=== PATIENT | female | born 1985 | race Caucasian/White ===

== ENCOUNTER 2016-10-16 17:22 | Emergency (ER) | payer BC ==
[2016-10-16 18:43] VITALS: BP 115/57
--- NOTE | 2016-10-16 19:34 | UC ---
Ear Complaint HPI - HPI Summary HPI Summary: 35 WEEKS , HAS HAD 3WEEKS OF BILATERAL EAR DISCOMFORT WELL COUGH AND CONGESTION. NO FEVER, BUT EAR PAIN AND CONGESTION ARE GETTING WORSE - History of Current Complaint Chief Complaint: UCRespiratory Stated Complaint: CONGESTION/COUGH/EARS Time Seen by Provider: 10/16/16 19:12 Hx Obtained From: Patient Hx Last Menstrual Period: 01/18/16 Onset/Duration: Gradual Onset, Lasting Days, Still Present Severity Initially: Mild Severity Currently: Moderate Associated Signs/Symptoms: Positive: URI Symptoms - Allergies/Home Medications Allergies/Adverse Reactions: Allergies Allergy/AdvReac Type Severity Reaction Status Date / Time Amoxicillin Allergy Unknown Verified 10/16/16 18:44 Reaction Details Bee Venom Allergy Unknown Verified 10/16/16 18:44 Reaction Details Penicillins Allergy Unknown Verified 10/16/16 18:44 Reaction Details Zonisamide Allergy Hives Verified 10/16/16 18:44 antihistamines Allergy See Comment Uncoded 10/16/16 18:44 Home Medications: Home Medications Dextromethorphan-Guaifenesin [Robitussin Cough+Chest Co 10-200 mg] 2 cap PO ONCE PRN 10/16/16 [History Confirmed 10/16/16] PMH/Surg Hx/FS Hx/Imm Hx Previously Healthy: Yes - Surgical History Surgical History: None - Family History Known Family History: Positive: Hypertension, Diabetes - Social History Occupation: Employed Full-time Lives: With Family Alcohol Use: Rare Substance Use Type: None Smoking Status (MU): Never Smoked Tobacco Have You Smoked in the Last Year: No Review of Systems Constitutional: Negative Skin: Negative Eyes: Negative ENT: Ear Ache, Nasal Discharge Respiratory: Cough Cardiovascular: Negative Gastrointestinal: Negative Genitourinary: Negative Motor: Negative Neurovascular: Negative Musculoskeletal: Negative Neurological: Negative Psychological: Negative All Other Systems Reviewed And Are Negative: Yes Physical Exam Triage Information Reviewed: Yes Appearance: Well-Appearing, No Pain Distress, Well-Nourished, Other: - 35 WKS Vital Signs: Initial Vital Signs Temp 97.8 F 10/16/16 18:37 Pulse 90 10/16/16 18:37 Resp 16 10/16/16 18:37 BP 115/57 10/16/16 18:37 Pulse Ox 100 10/16/16 18:37 Eye Exam: Normal Eyes: Positive: Conjunctiva Clear ENT: Positive: Hearing grossly normal, Pharynx normal, TM dull, TM red Dental Exam: Normal Neck exam: Normal Neck: Positive: Supple, Nontender, No Lymphadenopathy Respiratory Exam: Normal Respiratory: Positive: Chest non-tender, Lungs clear, Normal breath sounds, No respiratory distress, No accessory muscle use Cardiovascular Exam: Normal Cardiovascular: Positive: RRR, No Murmur, Pulses Normal Abdominal Exam: Normal Abdomen Description: Positive: Nontender, No Organomegaly Musculoskeletal Exam: Normal Musculoskeletal: Positive: Strength Intact Neurological Exam: Normal Psychological Exam: Normal Psychological: Positive: Normal Response To Family Skin Exam: Normal Ear Complaint Course/Dx - Differential Dx/Diagnosis Differential Diagnosis/HQI/PQRI: Otitis Media Provider Diagnoses: LEFT OTITIS MEDIA. UPPER RESPIRATORY INFECTION. 35 WEEKS Discharge - Discharge Plan Condition: Stable Disposition: HOME Prescriptions: Azithromycin TAB* [Zithromax TAB (Z-ELLIOT) 250 mg #6 tabs] 250 mg PO DAILY #6 tab Patient Education Materials: Otitis Media (ED), Upper Respiratory Infection (ED ) Referrals: Shania Aguero NP [Primary Care Provider] -
== END 2016-10-16 19:31 | disposition home or self-care (01) ==
LOC: UCCORT 17:22
DX: O99.89 Other specified diseases and conditions complicating pregnancy, childbirth and the puerperium (principal); H66.92 Otitis media, unspecified, left ear; J06.9 Acute upper respiratory infection, unspecified; Z3A.35 35 weeks gestation of pregnancy
CPT/HCPCS: 99212; G0463

== ENCOUNTER 2018-02-14 17:14 | Emergency (ER) | payer BC ==
--- NOTE | 2018-02-14 17:46 | UC ---
Throat Pain/Nasal Keyur HPI - HPI Summary HPI Summary: Pt with 8 days progressive sinus congestion, pnd, sore throat and 3 days ear pain Pt initially thought was allergies, but sx worse. tactile temp. Taking flonase, decongestant without improvment. No sob, cough, cp. + sick contact Pt's medications reviewed this visit - History of Current Complaint Stated Complaint: SINUS/EAR Time Seen by Provider: 02/14/18 17:42 Hx Obtained From: Patient Hx Last Menstrual Period: 01/18/16 ?: No Onset/Duration: Gradual Onset Severity: Mild Pain Intensity: 4 Associated Signs & Symptoms: Positive: Sinus Discomfort, Nasal Discharge, Fever - tactile Related History: Seasonal Allergies - Allergies/Home Medications Allergies/Adverse Reactions: Allergies Allergy/AdvReac Type Severity Reaction Status Date / Time amoxicillin Allergy Rash Verified 02/14/18 17:43 bee venom protein (honey bee) Allergy Unknown Verified 02/14/18 17:43 Reaction Details Penicillins Allergy Rash Verified 02/14/18 17:43 zonisamide Allergy Hives Verified 02/14/18 17:43 "Some ANTIHISTAMINES" Allergy "Pinching Uncoded 02/14/18 17:43 feeling in my heart" Home Medications: Home Medications Fluticasone NASAL SPRAY 50MCG* [Flonase NASAL SPRAY 50MCG*] 2 spray BOTH NARES DAILY PRN 02/14/18 [History Confirmed 02/14/18] Ibuprofen TAB* [Advil TAB*] 800 mg PO Q8HR PRN 02/14/18 [History Confirmed 02/14] LevoCETirizine TAB (NF) [Xyzal TAB (NF)] 5 mg PO DAILY PRN 02/14/18 [History Confirmed 02/14/18] PMH/Surg Hx/FS Hx/Imm Hx Previously Healthy: Yes - Surgical History Surgical History: None - Family History Known Family History: Positive: Hypertension, Diabetes - Social History Occupation: Employed Full-time Lives: With Family Alcohol Use: Rare Substance Use Type: None Smoking Status (MU): Never Smoked Tobacco Have You Smoked in the Last Year: No Review of Systems Constitutional: Negative ENT: Ear Ache, Nasal Discharge, Sinus Congestion All Other Systems Reviewed And Are Negative: Yes Physical Exam Triage Information Reviewed: Yes Appearance: Well-Appearing, No Pain Distress, Well-Nourished Vital Signs Reviewed: Yes Eye Exam: Normal Eyes: Positive: Conjunctiva Clear ENT Exam: Normal ENT: Positive: Hearing grossly normal, Pharynx normal, Nasal congestion, Other - fluid, erythema right TM + retracted turbinates inflammed right MAx sinus pain + PND no exudate, no erythema Dental Exam: Normal Neck exam: Normal Neck: Positive: Supple, Nontender, No Lymphadenopathy Respiratory Exam: Normal Respiratory: Positive: Chest non-tender, Lungs clear, Normal breath sounds, No respiratory distress, No accessory muscle use Cardiovascular Exam: Normal Cardiovascular: Positive: RRR, No Murmur Abdominal Exam: Normal Abdomen Description: Positive: Nontender Bowel Sounds: Positive: Present Musculoskeletal Exam: Normal Musculoskeletal: Positive: Strength Intact Neurological Exam: Normal Neurological: Positive: Alert Psychological Exam: Normal Skin Exam: Normal Throat Pain/Nasal Course/Dx - Course Course Of Treatment: Pt with sinus congestion, right ear pain. progressive x 8 days. little improved with OTC meds. pt with right OM on exam. abx. decongestant. flonase. secretion precaution. return precautions. motrin/apap - Differential Dx/Diagnosis Provider Diagnoses: right OM. sinusitis Discharge - Sign-Out/Discharge Documenting (check all that apply): Discharge/Admit/Transfer - Discharge Plan Condition: Stable Disposition: HOME Prescriptions: Azithromycin 500 mg PO DAILY #7 tablet Patient Education Materials: Ear Infection (ED) Referrals: Shania Aguero ANDROID UI DEVELOPER [Primary Care Provider] - Additional Instructions: - Okay to alternate ibuprofen (Advil, Motrin) and Tylenol every 3 hours for pain. Take with food. Do NOT take for more than 4-5 days - Continue with allergy medicine and flonase as previously prescribed. It is recommended you consider taking a decongestant such as sudafed. Take this medication in the morning as it can cause people to feel extra energy and can prevent restful sleep - Take antibiotics as prescribed until gone. These infections are spread by secretions - do not share eating or drinking utensils until you symptoms are resolved. Clean items that may get your secretions such as cell phones, ipads, computer mouse, television remotes, steering wheel. Once you have been on antibiotics for 2 days, change your toothbrush and your pillowcase. - Contact your doctor to arrange a follow-up appointment as needed - Billing Disposition and Condition Condition: STABLE Disposition: HOME
[2018-02-14 17:47] VITALS: BP 131/74
== END 2018-02-14 18:10 | disposition home or self-care (01) ==
LOC: UCCORT 17:14
DX: H66.91 Otitis media, unspecified, right ear (principal); J32.9 Chronic sinusitis, unspecified; Z88.0 Allergy status to penicillin; Z88.8 Allergy status to other drugs, medicaments and biological substances; Z91.030 Bee allergy status
CPT/HCPCS: 99212; G0463

== ENCOUNTER 2018-03-30 07:25 | Emergency (ER) | payer BC ==
[2018-03-30 07:46] VITALS: BP 127/71
--- NOTE | 2018-03-30 08:21 | UC ---
Skin Complaint HPI - HPI Summary HPI Summary: 3 day history of tenderness and induration in the left jaw area--tried to express it without any result but never clearly saw a pustule. No fever, no sore throat, cough or headache. Trying to conceive with a hx of PCOS, about to stop fertility meds, but had a serum HCG of 5 on her labs with repeat planned for tomorrow. - History of Current Complaint Chief Complaint: UCSkin Time Seen by Provider: 03/30/18 08:12 Stated Complaint: SKIN COMPLAINT Hx Obtained From: Patient Hx Last Menstrual Period: End december Onset/Duration: Gradual Onset, Lasting Days - 3 Timing: Constant Onset Severity: Mild Current Severity: Mild Pain Intensity: 2 Location: Discrete, Face - left jaw area Character: Swelling, Raised, Painful Aggravating Factor(s): Touch Alleviating Factor(s): Heat Associated Signs & Symptoms: Positive: Negative - Allergy/Home Medications Allergies/Adverse Reactions: Allergies Allergy/AdvReac Type Severity Reaction Status Date / Time amoxicillin Allergy Rash Verified 03/30/18 07:46 bee venom protein (honey bee) Allergy Unknown Verified 03/30/18 07:46 Reaction Details Penicillins Allergy Rash Verified 03/30/18 07:46 zonisamide Allergy Hives Verified 03/30/18 07:46 "Some ANTIHISTAMINES" Allergy "Pinching Uncoded 03/30/18 07:46 feeling in my heart" Review of Systems Constitutional: Negative Skin: Negative Eyes: Negative ENT: Negative Respiratory: Negative Cardiovascular: Negative Gastrointestinal: Negative Genitourinary: Other - LMP December with hx of PCOS and irregular cycles. About to begin fertility treatment. Motor: Negative Neurovascular: Negative Musculoskeletal: Negative Neurological: Negative Psychological: Negative Is Patient Immunocompromised?: No All Other Systems Reviewed And Are Negative: Yes PMH/Surg Hx/FS Hx/Imm Hx - Additional Past Medical History Additional PMH: PCOS with infertility Previously Healthy: Yes - Surgical History Surgical History: None - Family History Known Family History: Positive: Hypertension, Diabetes - Social History Occupation: Employed Full-time - nurse Lives: With Family Alcohol Use: Rare Substance Use Type: None Smoking Status (MU): Never Smoked Tobacco Have You Smoked in the Last Year: No Physical Exam Triage Information Reviewed: Yes Appearance: Well-Appearing, Pain Distress - mild Vital Signs: Initial Vital Signs Temp 98.8 F 03/30/18 07:40 Pulse 91 07/04/18 07:40 Resp 22 03/30/18 07:40 BP 127/71 03/30/18 07:40 Pulse Ox 100 03/30/18 07:40 Vital Signs Reviewed: Yes Eye Exam: Normal ENT: Positive: Pharynx normal, TMs normal Dental Exam: Normal Neck: Positive: Supple, Nontender, No Lymphadenopathy Respiratory: Positive: Lungs clear, Normal breath sounds Cardiovascular: Positive: RRR, No Murmur Psychological Exam: Normal Skin Exam: Other - left jaw area, just inferior to the angle with a firm indurated erythematous area 4 x 3.5 cm. No adenopathy. Central crust with skin induration. NOT fluctuant. Course/Dx - Course Course Of Treatment: keflex for cellulitis with possible forming abscess. - Differential Diagnoses - Skin Complaint Differential Diagnoses: Cellulitis - Diagnoses Provider Diagnoses: cellulitis left face. Discharge - Sign-Out/Discharge Documenting (check all that apply): Discharge/Admit/Transfer - Discharge Plan Condition: Stable Disposition: HOME Prescriptions: Cephalexin CAP* [Keflex 500 CAP*] 500 mg PO QID #40 cap Patient Education Materials: Cellulitis (ED) Referrals: Shania Aguero, DISABILITY LIAISON OFFICER [Primary Care Provider] - Additional Instructions: begin cephalexin 500mg 4 times daily. This can be stopped at 7 days if the infection has resolved. An abscess might form, in which case you might need to have incision and drainage. If the area becomes boggy, return here or to your primary doctor for reassessment. Continue warm compresses for 5 to 10 minutes at least 3 times daily. - Billing Disposition and Condition Condition: STABLE Disposition: Home
== END 2018-03-30 08:47 | disposition home or self-care (01) ==
LOC: UCCORT 07:25
DX: Z88.0 Allergy status to penicillin (principal); Z88.2 Allergy status to sulfonamides; Z88.8 Allergy status to other drugs, medicaments and biological substances; L03.211 Cellulitis of face
CPT/HCPCS: 99212; G0463

== ENCOUNTER 2018-10-08 17:08 | Emergency (ER) | payer BC ==
[2018-10-08 17:34] VITALS: BP 138/68
--- NOTE | 2018-10-08 17:42 | UC ---
Respiratory Complaint HPI - HPI Summary HPI Summary: 2 wks chest congestion/fever. nothing makes it better/worse. - History of Current Complaint Chief Complaint: UCGeneralIllness Stated Complaint: COUGH,CONGESTION Time Seen by Provider: 10/08/18 17:32 Hx Obtained From: Patient Hx Last Menstrual Period: End december Onset/Duration: Sudden Onset Pain Intensity: 0 Pain Scale Used: 0-10 Numeric - Allergies/Home Medications Allergies/Adverse Reactions: Allergies Allergy/AdvReac Type Severity Reaction Status Date / Time amoxicillin Allergy Rash Verified 10/08/18 17:34 bee venom protein (honey bee) Allergy Unknown Verified 10/08/18 17:34 Reaction Details Penicillins Allergy Rash Verified 10/08/18 17:34 zonisamide Allergy Hives Verified 10/08/18 17:34 "Some ANTIHISTAMINES" Allergy "Pinching Uncoded 10/08/18 17:34 feeling in my heart" Home Medications: Home Medications Levothyroxine TAB* [Synthroid TAB*] 50 mcg PO 10/08/18 [History Confirmed ] Pnv No.95/Ferrous Fum/Folic AC [ Caplet] 1 each PO 10/08/18 [History] metFORMIN* [Glucophage 500 MG TAB *] 500 mg PO DAILY 10/08/18 [History Confirmed 10/08/18] PMH/Surg Hx/FS Hx/Imm Hx Previously Healthy: Yes Endocrine History: Diabetes, Hypothyroidism - Surgical History Surgical History: None - Family History Known Family History: Positive: Hypertension, Diabetes - Social History Alcohol Use: Rare Substance Use Type: None Smoking Status (MU): Never Smoked Tobacco Have You Smoked in the Last Year: No Review of Systems All Other Systems Reviewed And Are Negative: Yes Constitutional: Positive: Chills. Negative: Fever, Fatigue Eyes: Negative: Drainage ENT: Positive: Sore Throat, Sinus Congestion, Sinus Pain/Tenderness. Negative: Dental Pain Respiratory: Positive: Cough. Negative: Shortness Of Breath Cardiovascular: Positive: Negative Gastrointestinal: Negative: Vomiting, Diarrhea Neurological: Positive: Headache Physical Exam Triage Information Reviewed: Yes Appearance: Well-Appearing Vital Signs: Initial Vital Signs Temp 97.5 F 10/08/18 17:32 Pulse 104 10/08/18 17:32 Resp 18 10/08/18 17:32 BP 138/68 10/08/18 17:32 Pulse Ox 100 10/08/18 17:32 Vital Signs Reviewed: Yes ENT: Positive: Pharynx normal, TMs normal Neck: Positive: No Lymphadenopathy Respiratory Exam: Normal Cardiovascular Exam: Normal Neurological: Positive: Alert Psychological Exam: Normal Skin: Negative: Rashes UC Diagnostic Evaluation - Laboratory O2 Sat by Pulse Oximetry: 100 Respiratory Course/Dx - Course Course Of Treatment: 2 wks hx of worsening cough. vitals good w/ minimal tachycardia. will tx symptoms as thought is this is viral; self limiting. - Differential Dx/Diagnosis Differential Diagnosis/HQI/PQRI: Airway Obstruction, Asthma, Bronchitis, Lower Resp Infection Provider Diagnosis: Viral bronchitis Discharge - Sign-Out/Discharge Documenting (check all that apply): Patient Departure All imaging exams completed and their final reports reviewed: No Studies - Discharge Plan Condition: Good Disposition: HOME Prescriptions: Albuterol HFA INHALER* [Ventolin HFA Inhaler*] 1 - 2 puff INH Q6H PRN #1 mdi PRN Reason: Cough Patient Education Materials: Acute Bronchitis (ED) Referrals: Shania Aguero, ENDBAND CUTTER HAND [Primary Care Provider] - Additional Instructions: For now I do think you have a lingering VIRAL bronchitis and it is ok to use the albuterol inhaler. but if this persists or a fever develops please follow up with your pcp. - Billing Disposition and Condition Condition: GOOD Disposition: Home
== END 2018-10-08 18:02 | disposition home or self-care (01) ==
LOC: UCCORT 17:08
DX: J20.8 Acute bronchitis due to other specified organisms (principal); E11.9 Type 2 diabetes mellitus without complications; Z79.84 Long term (current) use of oral hypoglycemic drugs; E03.9 Hypothyroidism, unspecified; Z88.0 Allergy status to penicillin; Z88.8 Allergy status to other drugs, medicaments and biological substances
CPT/HCPCS: 99212; G0463

== ENCOUNTER 2018-10-28 08:47 | Emergency (ER) | payer BC ==
[2018-10-28 09:22] VITALS: BP 125/66
[2018-10-28 09:54] LABS: Influenza A Molecular POSITIVE (Negative)
--- NOTE | 2018-10-28 10:35 | UC ---
FLU HPI - HPI Summary HPI Summary: 33-year-old female who is 29 weeks presents with 3-4 days of fever, fatigue, malaise, body aches, nasal congestion, sore throat, and nonproductive cough. Denies ear pain, dysphagia, chest pain, palpitations, shortness of breath, wheezing, abdominal pain, nausea, vomiting, cramping, or spotting. States she has continued to feel movement. - History of Current Complaint Chief Complaint: UCRespiratory Stated Complaint: COUGH,CONGESTION,BODY ACHES Time Seen by Provider: 10/28/18 10:28 Hx Obtained From: Patient Hx Last Menstrual Period: End december Pain Intensity: 0 - Allergy/Home Medications Allergies/Adverse Reactions: Allergies Allergy/AdvReac Type Severity Reaction Status Date / Time amoxicillin Allergy Rash Verified 10/28/18 09:16 bee venom protein (honey bee) Allergy Unknown Verified 10/28/18 09:16 Reaction Details Penicillins Allergy Rash Verified 10/28/18 09:16 zonisamide Allergy Hives Verified 10/28/18 09:16 "Some ANTIHISTAMINES" Allergy "Pinching Uncoded 10/28/18 09:16 feeling in my heart" Home Medications: Home Medications Phenylephrine/Dm/Acetaminop/GG [Tylenol Cold-Flu Severe Caplet] 2 each PO Q4H PRN 10/28/18 [History Confirmed 10/28/18] PMH/Surg Hx/FS Hx/Imm Hx Previously Healthy: Yes Endocrine History: Hypothyroidism - Surgical History Surgical History: None - Family History Known Family History: Positive: Hypertension, Diabetes - Social History Occupation: Employed Full-time Lives: With Family Alcohol Use: None Substance Use Type: None Smoking Status (MU): Never Smoked Tobacco Have You Smoked in the Last Year: No Review of Systems All Other Systems Reviewed And Are Negative: Yes Constitutional: Positive: Fever, Chills, Fatigue Skin: Negative: Rash Eyes: Negative: Drainage, Eye Redness ENT: Positive: Sore Throat, Nasal Discharge, Sinus Congestion. Negative: Ear Ache, Sinus Pain/Tenderness Respiratory: Positive: Cough. Negative: Shortness Of Breath Cardiovascular: Negative: Palpitations, Chest Pain Gastrointestinal: Negative: Abdominal Pain, Vomiting, Diarrhea, Nausea Genitourinary: Negative: Dysuria, Hematuria, Frequency, Urgency, Vaginal/Penile Discharge, Abnormal Bleeding Musculoskeletal: Positive: Myalgia Neurological: Positive: Negative Is Patient Immunocompromised?: No Physical Exam - Summary Physical Exam Summary: GENERAL APPEARANCE: Well developed, well nourished, alert and cooperative, and appears to be in no acute distress. EYES: Conjunctiva clear. No discharge. Vision is grossly intact. EARS: External auditory canals and tympanic membranes clear, hearing grossly intact. NOSE: Mild-moderate nasal congestion. Clear nasal discharge. THROAT: Mild pharyngeal erythema. No tonsilar inflammation, swelling, exudate, or lesions. Oral cavity normal. Teeth and gingiva in good general condition. NECK: Neck supple, non-tender without lymphadenopathy. CARDIAC: Normal S1 and S2. No S3, S4 or murmurs. Rhythm is regular. There is no peripheral edema, cyanosis or pallor. Extremities are warm and well perfused. Capillary refill is less than 2 seconds. LUNGS: Clear to auscultation without rales, rhonchi, wheezing or diminished breath sounds. ABDOMEN: Positive bowel sounds. Soft, nondistended, nontender. No guarding or rebound. No masses or hepatosplenomegally. Fundal height consistent with stated gestational age. MUSKULOSKELETAL: ROM intact to all extremities. No joint erythema or tenderness. Normal muscular development. Normal gait. SKIN: Skin normal color, texture and turgor with no lesions or eruptions. Triage Information Reviewed: Yes Vital Signs: Initial Vital Signs Temp 97.9 F 10/28/18 09:17 Pulse 112 10/28/18 09:17 Resp 18 10/28/18 09:17 BP 125/66 10/28/18 09:17 Pulse Ox 100 10/28/18 09:17 Vital Signs Reviewed: Yes Diagnostics - Laboratory Diagnostic Studies Completed/Ordered: Rapid flu positive influenza A Flu Course/Dx - Course Course Of Treatment: 33-year-old female who is 29 weeks presents with 3 -4 days of fever, fatigue, malaise, body aches, nasal congestion, sore throat, and nonproductive cough. Denies ear pain, dysphagia, chest pain, palpitations, shortness of breath, wheezing, abdominal pain, nausea, vomiting, cramping, or spotting. States she has continued to feel movement. Afebrile. Vital signs stable. Exam reveals an adult female in no acute distress. Mild to moderate nasal congestion, mild pharyngeal erythema with cobblestoning, no tonsillar swelling or exudate, palatal clear breath sounds, and a nonproductive cough. Rapid influenza was positive for influenza A. Recommending symptomatic treatment. She is to follow-up with her primary care provider in 7 days if symptoms persist. Anticipatory guidance and warning symptoms were reviewed with the patient. Verbalizes understanding and agrees to plan of care. - Differential Dx/Diagnosis Differential Diagnosis/HQI/PQRI: Bronchitis, Influenza, Pneumonia, Upper Respiratory Infection Provider Diagnosis: Influenza A Discharge - Sign-Out/Discharge Documenting (check all that apply): Patient Departure All imaging exams completed and their final reports reviewed: No Studies - Discharge Plan Condition: Stable Disposition: HOME Patient Education Materials: Influenza (ED) Referrals: Shania Aguero NP [Primary Care Provider] - 7 Days (If no improvement in symptoms.) Additional Instructions: You tested positive for influenza A. The flu typically runs its course over 7- 10 days. Drink plenty of fluids to avoid dehydration especially if you are running any fever. Use a saline rinse kit such as Neti Pot or NeilMed at least twice a day to help thin secretions and promote drainage of the sinuses. Take over the counter acetaminophen (Tylenol) according to directions as needed for pain or fever. Use salt water gargles several times a day if you have a sore throat. You may also use Chloraseptic spray or Cepacol lonzenges according to directions which contain a numbing medication and can provide some temporary relief from your sore throat. Follow up with your primary care provider in 7 days if symptoms persist. Seek immediate medical attention in the emergency room if you have fever greater than 100.5 F despite taking acetaminophen, have chest pain, difficulty breathing, are unable to swallow, develop cramping have spotting or have any worsening of symptoms. - Billing Disposition and Condition Condition: STABLE Disposition: Home
== END 2018-10-28 10:58 | disposition home or self-care (01) ==
LOC: UCCORT 08:47
DX: O99.513 Diseases of the respiratory system complicating pregnancy, third trimester (principal); J10.1 Influenza due to other identified influenza virus with other respiratory manifestations; Z3A.29 29 weeks gestation of pregnancy; Z88.0 Allergy status to penicillin; Z91.030 Bee allergy status; Z88.8 Allergy status to other drugs, medicaments and biological substances
CPT/HCPCS: 99211; G0463

== ENCOUNTER 2018-12-27 17:31 | Emergency (ER) | payer BC ==
[2018-12-27 18:26] VITALS: BP 104/68
--- NOTE | 2018-12-27 19:12 | UC ---
UC General HPI - HPI Summary HPI Summary: head cold x 1 week. L ear pain since early am. 37 weeks . no abdominal pain. pcn allergy was a rash years ago . - History of Current Complaint Chief Complaint: UCEar Stated Complaint: LT EAR COMPLAINT Time Seen by Provider: 12/27/18 19:06 Hx Obtained From: Patient Hx Last Menstrual Period: End of December Pain Intensity: 3 Associated Signs & Symptoms: Negative: Fever, Headache - Allergy/Home Medications Allergies/Adverse Reactions: Allergies Allergy/AdvReac Type Severity Reaction Status Date / Time amoxicillin Allergy Rash Verified 12/27/18 18:25 bee venom protein (honey bee) Allergy Unknown Verified 12/27/18 18:25 Reaction Details Penicillins Allergy Rash Verified 12/27/18 18:25 zonisamide Allergy Hives Verified 12/27/18 18:25 "Some ANTIHISTAMINES" Allergy "Pinching Uncoded 12/27/18 18:25 feeling in my heart" PMH/Surg Hx/FS Hx/Imm Hx - Additional Past Medical History Additional PMH: 7 weeks Endocrine History: Thyroid Disease - Surgical History Surgical History: None - Family History Known Family History: Positive: Hypertension, Diabetes - Social History Lives: With Family Alcohol Use: None Substance Use Type: None Smoking Status (MU): Never Smoked Tobacco Have You Smoked in the Last Year: No - Immunization History Vaccination Up to Date: Yes Review of Systems All Other Systems Reviewed And Are Negative: Yes ENT: Positive: Ear Ache, Sinus Congestion Physical Exam Triage Information Reviewed: Yes Appearance: Well-Appearing Vital Signs: Initial Vital Signs Temp 98.1 F 12/27/18 18:21 Pulse 103 12/27/18 18:21 Resp 16 12/27/18 18:21 BP 104/68 12/27/18 18:21 Pulse Ox 100 12/27/18 18:21 Vital Signs Reviewed: Yes Eyes: Positive: Conjunctiva Clear ENT: Positive: Pharynx normal, TMs normal - R, TM red - L, Other - no mastoid tenderness or auricular adenopathy. Negative: Nasal drainage Neck: Positive: Supple, Nontender, No Lymphadenopathy Respiratory: Positive: Lungs clear Cardiovascular: Positive: RRR Abdomen Description: Positive: Nontender, Other: - Gravid uterus Musculoskeletal: Positive: ROM Intact Neurological: Positive: Alert Psychological: Positive: Age Appropriate Behavior Skin Exam: Normal Course/Dx - Diagnoses Provider Diagnosis: Otitis media Discharge - Sign-Out/Discharge Documenting (check all that apply): Patient Departure All imaging exams completed and their final reports reviewed: No Studies - Discharge Plan Condition: Stable Disposition: HOME Prescriptions: Cefdinir [Cefdinir 300 MG CAP] 300 mg PO BID 10 Days #20 capsule Patient Education Materials: Ear Infection (ED) Referrals: Shania Aguero, HEART COORDINATOR [Primary Care Provider] - Additional Instructions: follow up if not better in 5-7 days or sooner if worse. - Billing Disposition and Condition Condition: STABLE Disposition: Home
== END 2018-12-27 19:23 | disposition home or self-care (01) ==
LOC: UCCORT 17:31
DX: O26.891 Other specified pregnancy related conditions, first trimester (principal); Z3A.01 Less than 8 weeks gestation of pregnancy; H66.92 Otitis media, unspecified, left ear; Z88.0 Allergy status to penicillin
CPT/HCPCS: 99212; G0463

== ENCOUNTER 2019-03-15 10:31 | Emergency (ER) | payer BC ==
[2019-03-15 10:48] VITALS: BP 139/64
--- NOTE | 2019-03-15 10:59 | UC ---
General HPI - HPI Summary HPI Summary: States 6 days ago noticed a small bump in left axilla. Has continued to grow become more red and painful. No issues with abscess in axilla in the past. Has cellulitis on face treated with antibiotics in the past. Stopped two weeks ago. No fever. No N/V. Otherwise acting well. Meds: reviewed - History of Current Complaint Chief Complaint: UCSkin Stated Complaint: LEFT ARMPIT LUMP Time Seen by Provider: 03/15/19 10:37 Hx Last Menstrual Period: January 17 Pain Intensity: 3 - Allergy/Home Medications Allergies/Adverse Reactions: Allergies Allergy/AdvReac Type Severity Reaction Status Date / Time amoxicillin Allergy Rash Verified 03/15/19 10:48 bee venom protein (honey bee) Allergy Unknown Verified 03/15/19 10:48 Reaction Details Penicillins Allergy Rash Verified 03/15/19 10:48 zonisamide Allergy Hives Verified 03/15/19 10:48 "Some ANTIHISTAMINES" Allergy "Pinching Uncoded 03/15/19 10:48 feeling in my heart" Home Medications: Home Medications Clindamycin SUPP (NF) [Cleocin 100 MG SUPP (NF)] 100 mg VAGINAL 03/15/19 [ History] Norelgestromin/Ethin.estradiol [Xulane Patch] 1 patch 03/15/19 [History] PMH/Surg Hx/FS Hx/Imm Hx Previously Healthy: Yes - Surgical History Surgical History: None - Family History Known Family History: Positive: Hypertension, Diabetes - Social History Alcohol Use: None Substance Use Type: None Smoking Status (MU): Never Smoked Tobacco Have You Smoked in the Last Year: No - Immunization History Vaccination Up to Date: Yes Review of Systems All Other Systems Reviewed And Are Negative: Yes Physical Exam Triage Information Reviewed: Yes Appearance: Well-Appearing Vital Signs: Initial Vital Signs Temp 98 F 03/15/19 10:43 Pulse 88 03/15/19 10:43 Resp 20 03/15/19 10:43 BP 139/64 03/15/19 10:43 Pulse Ox 100 03/15/19 10:43 Vital Signs Reviewed: Yes Neck: Positive: Supple, Nontender Skin Exam: Other - left axilla 2-3 cm annular erythema, warmth, firm, mildly indurated. No fluctuance Course/Dx - Course Course Of Treatment: This is a 33 yr old with with rash on left axilla Consistent with cellulitis, ?early abscess Not amenable to I&D Plan Start Clindamycin as prescribed Continue warm compresses to area Monitor area Can d/c vaginal cleocin for BV that she was just started on but hasn't started yet. If area becomes more red, painful or swollen despite being on antibiotics, recommend follow up with PCP or return to urgent care - Diagnoses Provider Diagnosis: Cellulitis of axilla, left Discharge - Sign-Out/Discharge Documenting (check all that apply): Patient Departure All imaging exams completed and their final reports reviewed: No Studies - Discharge Plan Condition: Good Disposition: HOME Prescriptions: Clindamycin Cap(NF) [Clindamycin Cap 300 mg Cap(NF)] 300 mg PO Q6H #28 cap Patient Education Materials: Cellulitis (ED) Referrals: Shania Aguero, CUSTOMER COMPLAINT CLERK [Primary Care Provider] - Additional Instructions: Start Clindamycin as prescribed Continue warm compresses to area Monitor area If area becomes more red, painful or swollen despite being on antibiotics, recommend follow up with PCP or return to urgent care - Billing Disposition and Condition Condition: GOOD Disposition: Home
== END 2019-03-15 11:05 | disposition home or self-care (01) ==
LOC: UCCORT 10:31
DX: L03.112 Cellulitis of left axilla (principal); Z88.0 Allergy status to penicillin
CPT/HCPCS: 99212; G0463